=== PATIENT | female | born 1945 | race Caucasian/White ===

== ENCOUNTER 2021-02-13 05:54 | Day surgery (SDC) | payer MEDICARE, BC ==
[~2021-02-13 05:54] MED LIST: Dextrose 5%-0.45% NaCl 1,000 ML IV SCH; Sodium Chloride 0.9% 10 ML Syringe FLUSH PRN
[2021-02-13] MEDS ORDERED: fentaNYL 100 MCG/2 ML SDV IV ONE ×3 (05:55→07:04)
[2021-02-13] MEDS ORDERED: Midazolam 1 MG/ML 2 ML SDV IV ONE ×6 (05:55→07:19)
[2021-02-13] MEDS ORDERED: Midazolam 1 MG/ML 2 ML SDV ONE (06:07)
[2021-02-13] MEDS ORDERED: fentaNYL 100 MCG/2 ML SDV ONE (06:07)
--- NOTE | 2021-02-13 10:45 | OR ---
DATE: 02/13/2021 PROCEDURE: Total colonoscopy. INSTRUMENT USED: PCF-H190DL Olympus video colonoscope. PREMEDICATIONS: Fentanyl 100 mcg intravenous, Versed 3.5 mg intravenous. Nasal O2 cannula. The procedure was done under pulse oximetry, BP recording, and cardiac rehab nurse. INDICATION: Screening colonoscopic examination is done for detection of any polypoid lesions and removal, endoscopic hemostasis therapy if needed. DESCRIPTION OF PROCEDURE: Initial rectal exam was unremarkable. Rigid anoscopy was normal. The colonoscope was passed with ease. Few scattered diverticula were noted in the distal left colon along with deformity. The scope was passed with ease up to the ileocecal area. Photographs were taken of the normal- appearing cecum identified by landmarks of appendiceal orifice and double-bulged ileocecal folds. No bleeding was noted from any of the visualized areas at the commencement of the examination. The bowel preparation was found to be adequate. [place] scale 2 in all the regions, total score 6. No stricture. No vascular ectasia. No large isolated ulcerations seen. No evidence of diffuse inflammatory bowel disease in the form of friability, contact bleeding, or ulcerations. No polyp or tumor mass identified. Probing the proximal sides of folds and flexures using adequate distention and clearing up the stool material, withdrawal of the scope was made, cecum to rectum time over 6 minutes. No bleeding was noted from any of the visualized areas at the completion of examination. IMPRESSION: Diverticulosis. The patient tolerated the procedure well. [facility] /[id number]
== END 2021-02-13 09:35 | disposition home or self-care (01) ==
LOC: DL.ENDO 05:54
PROVIDERS: ATTEND Internal Medicine Gastroenterology
DX: Z12.11 Encounter for screening for malignant neoplasm of colon (principal); K57.30 Diverticulosis of large intestine without perforation or abscess without bleeding; M81.0 Age-related osteoporosis without current pathological fracture; Z88.6 Allergy status to analgesic agent; Z98.890 Other specified postprocedural states
CPT/HCPCS: J2250; J3010; J7042

== ENCOUNTER 2021-08-24 13:40 | Inpatient (IN) | payer MEDICARE, BC ==
[2021-08-24 14:16] LABS: ANION GAP 10.8 mEq/L (7-13); CHLORIDE,CL 84 mmol/L (98-107); SODIUM,NA 120 mmol/L (136-145)
--- NOTE | 2021-08-24 14:31 | EDM.PDOC ---
ED HPI GENERAL MEDICAL PROBLEM - General Chief Complaint: General Stated Complaint: [id number] TAB SANTIAGO SENT FOR IV FLUIDS Time Seen by Provider: 08/24/21 14:00 Source of Information: Reports: Patient History Limitations: Reports: No Limitations - History of Present Illness INITIAL COMMENTS - FREE TEXT/NARRATIVE: This 76 yo female patient was sent to the ED by her provider (Tab Santiago) due to low sodium levels. The patient was started on Chlorthalidone on 08/13/21 due to elevated blood pressures. The patient reports she "just has not felt right" since the medication was started. The patient had noticed that she did not feel like she could completely empty her bladder over the weekend. The patient went to the clinic to have a UA and decided to do her blood work for her follow-up with Tab on Tuesday. When the patient's sodium level came back at 120, the patient was called and advised to come to the ED for further evaluation and treatment. The clinic forwarded the patient's UA demonstrating the patient had blood in her urine as well as it Leuk Est. Onset: Unknown/Unsure Duration: Constant Location: Reports: Head (headache), Abdomen Quality: Reports: Other Severity: Moderate Improves with: Reports: None Worsens with: Reports: None Context: Reports: Other Associated Symptoms: Reports: No Other Symptoms Headache Pain Score (Numeric/FACES): 5 - Related Data Allergies Allergy/AdvReac Type Severity Reaction Status Date / Time codeine Allergy Nausea Verified 08/24/21 13:56 Home Meds: Home Meds Cholecalciferol (Vitamin D3) [Vitamin D] 400 unit PO TID 12/25/13 [History] Levothyroxine [Sythroid] 100 mcg PO DAILY 12/25/13 [History] Lutein/Minerals/Vit A,C & E [I-Eri] 1 each PO BEDTIME 12/25/13 [History] Glucosamine/Chondroitin/C/Juan [Glucosamine Chondroitin Caplet] 1 tab PO BEDTIME 08/21/18 [History] Ibuprofen 200 mg PO ASDIRECTED 08/21/18 [History] Magnesium Carbonate 500 mg PO BEDTIME 08/21/18 [History] Cetirizine [ZyrTEC] 10 mg PO DAILY 08/23/18 [History] Calcium Carbonate [Calcium] 500 mg PO BID 02/12/21 [History] Zinc/Ascorbic Acid/Pyridoxine [Zinc-Vitamin C-B6 Lozenge] 1 tab.chew PO DAILY 02/12/21 [History] Past Medical History HEENT History: Reports: Impaired Vision, Other (See Below) Other HEENT History: WEARS CORRECTIVE LENS Cardiovascular History: Reports: Heart Murmur, Other (See Below) Other Cardiovascular History: VARICOSE VEINS Respiratory History: Reports: None Gastrointestinal History: Reports: None Genitourinary History: Reports: None SKY CAP History: Reports: , Spontaneous Musculoskeletal History: Reports: Arthritis, Fracture, Other (See Below) Other Musculoskeletal History: WRIST FRACTURE BILAT Neurological History: Reports: Headaches, Chronic, Migraines Psychiatric History: Reports: None Other Psychiatric History: SADD Endocrine/Metabolic History: Reports: Hyperparathyroidism, Hypothyroidism, Other (See Below) Other Endocrine/Metabolic History: HX OF GRAVE'S DISEASE - TREATED Hematologic History: Reports: None Immunologic History: Reports: None Oncologic (Cancer) History: Reports: None Dermatologic History: Reports: None - Infectious Disease History Infectious Disease History: Reports: Chicken Pox, Mumps, Novel Coronavirus - Past Surgical History Head Surgeries/Procedures: Reports: None HEENT Surgical History: Reports: Cataract Surgery Cardiovascular Surgical History: Reports: Varicose Respiratory Surgical History: Reports: None GI Surgical History: Reports: Colonoscopy Female Surgical History: Reports: Breast Implant, Tubal Ligation Endocrine Surgical History: Reports: Other (See Below) Other Endocrine Surgeries/Procedures: THYRIOD ABLATION - DENIES ABLATION Neurological Surgical History: Reports: None Musculoskeletal Surgical History: Reports: Other (See Below) Other Musculoskeletal Surgeries/Procedures:: HX of HAND SURGERY, TENDON REPAIR FOLLOWING DOG BITE Oncologic Surgical History: Reports: None Dermatological Surgical History: Reports: None Social & Family History - Family History Family Medical History: No Pertinent Family History Cardiac: Reports: Hypertension Musculoskeletal: Reports: Osteoporosis Neurological: Reports: CVA Psychiatric: Reports: Depression Endocrine/Metabolic: Reports: Diabetes, type II, Hypothyroidism Oncologic: Reports: Breast, Colon, Lung, Thyroid - Tobacco Use Tobacco Use Status *Q: Never Tobacco User Second Hand Smoke Exposure: No - Caffeine Use Caffeine Use: Reports: Coffee Caffeine Use Comment: 7 CUPS daily - Recreational Drug Use Recreational Drug Use: No ED ROS GENERAL - Review of Systems Review Of Systems: Comprehensive ROS is negative, except as noted in HPI. ED EXAM, GENERAL - Physical Exam Exam: See Below Exam Limited By: No Limitations General Appearance: Alert, WD/WN, Moderate Distress (due to headache) Eye Exam: Bilateral Eye: EOMI, Normal Inspection, PERRL Ears: Normal External Exam, Normal Canal, Hearing Grossly Normal, Normal TMs Nose: Normal Inspection, Normal Mucosa, No Blood Throat/Mouth: Normal Inspection, Normal Lips, Normal Teeth, Normal Gums, Normal Oropharynx, Normal Voice, No Airway Compromise Head: Atraumatic, Normocephalic Neck: Normal Inspection, Supple, Non-Tender, Full Range of Motion Respiratory/Chest: No Respiratory Distress, Lungs Clear, Normal Breath Sounds, No Accessory Muscle Use, Chest Non-Tender Cardiovascular: Normal Peripheral Pulses, Regular Rate, Rhythm, No Edema, No Gallop, No JVD, No Murmur, No Rub GI/Abdominal: Normal Bowel Sounds, Soft, Non-Tender, No Organomegaly, No Distention, No Abnormal Bruit, No Mass (Female) Exam: Deferred Rectal (Female) Exam: Deferred Back Exam: Normal Inspection, Full Range of Motion, NT Extremities: Normal Inspection, Normal Range of Motion, Non-Tender, Normal Capillary Refill, No Pedal Edema Neurological: Alert, Oriented, CN II-XII Intact, Normal Cognition, Normal Gait, Normal Reflexes, No Motor/Sensory Deficits Psychiatric: Normal Affect, Normal Mood Skin Exam: Warm, Dry, Intact, Normal Color, No Rash Lymphatic: No Adenopathy Course - Vital Signs Last Recorded V/S: Last Vital Signs Temp 96.4 F L 08/24/21 13:46 Pulse 69 08/24/21 13:46 Resp 16 08/24/21 13:46 BP 149/88 H 08/24/21 13:46 Pulse Ox 100 08/24/21 13:46 - Orders/Labs/Meds Orders: Active Orders 24 hr Category Date Time Status Admission Diagnosis [ADT] Urgent ADT 08/24/21 14:47 Ordered Admission Status [Patient Status] [ADT] Routine ADT 08/24/21 14:47 Ordered CORONAVIRUS COVID-19 MYRNA [MOLEC] Urgent Lab 08/24/21 14:39 Ordered Labs: Laboratory Tests 08/24/21 08/24/21 Range/Units 13:51 13:51 WBC 8.2 (5.0-10.0) 10^3/uL RBC 4.18 L (4.2-5.4) 10^6/uL Hgb 12.7 (12.0-16.0) g/dL Hct 36.6 L (37.0-47.0) % MCV 87.6 (80-100) fL MCH 30.4 (27.0-34.0) pg MCHC 34.7 (33.0-35.0) g/dL Plt Count 273 (150-450) 10^3/uL Neut % (Auto) 76.5 H (42.2-75.2) % Lymph % (Auto) 15.3 L (20.5-50.1) % [place] % (Auto) 6.8 (2-8) % Eos % (Auto) 1.0 (1.0-3.0) % Baso % (Auto) 0.4 (0.0-1.0) % Sodium 120 L (136-145) mmol/L Potassium 3.8 (3.5-5.1) mmol/L Chloride 84 L (98-107) mmol/L Carbon Dioxide 29 (21-32) mmol/L Anion Gap 10.8 (7-13) mEq/L BUN 10 (7-18) mg/dL Creatinine 0.61 (0.55-1.02) mg/dL Est Cr Clr Drug Dosing 66.69 mL/min Estimated GFR (MDRD) > 60 BUN/Creatinine Ratio 16.4 (No establ ref range) Glucose 95 (70-99) mg/dL Calcium 8.8 (8.5-10.1) mg/dL Total Bilirubin 0.7 (0.2-1.0) mg/dL AST 24 (15-37) U/L ALT 27 (14-59) U/L Alkaline Phosphatase 76 (46-116) U/L Total Protein 7.4 (6.4-8.2) g/dL Albumin 3.9 (3.4-5.0) g/dL Globulin 3.5 Albumin/Globulin Ratio 1.1 Departure - Departure Time of Disposition: 14:51 Disposition: Admitted As Inpatient 65 Condition: Fair Clinical Impression: Hyponatremia UTI (urinary tract infection) Qualifiers: Urinary tract infection type: site unspecified Hematuria presence: with hematuria Qualified Code(s): N39.0 - Urinary tract infection, site not specified; R31.9 - Hematuria, unspecified - Discharge Information *PRESCRIPTION DRUG MONITORING PROGRAM REVIEWED*: Not Applicable *COPY OF PRESCRIPTION DRUG MONITORING REPORT IN PATIENT SATYA: Not Applicable Care Plan Goals: Discussed the patient's history, examination and lab results with Dr. Houser. Dr. Houser accepted the patient for continued evaluation and management as an inpatient at [facility]. Sepsis Event Note (ED) - Evaluation Sepsis Screening Result: No Definite Risk - Focused Exam Vital Signs: Vital Signs Temp Pulse Resp BP Pulse Ox 08/24/21 13:46 96.4 F L 69 16 149/88 H 100 - My Orders Last 24 Hours: My Active Orders 08/24/21 14:39 CORONAVIRUS COVID-19 MYRNA [MOLEC] Urgent 08/24/21 14:47 Admission Diagnosis [ADT] Urgent Admission Status [Patient Status] [ADT] Routine - Assessment/Plan Last 24 Hours: My Active Orders 08/24/21 14:39 CORONAVIRUS COVID-19 MYRNA [MOLEC] Urgent 08/24/21 14:47 Admission Diagnosis [ADT] Urgent Admission Status [Patient Status] [ADT] Routine
[2021-08-24] MEDS ORDERED: Temazepam 15 MG Cap PO PRN (17:22)
[2021-08-24] MEDS ORDERED: Ondansetron 4 MG/2 ML SDV IVPUSH PRN (17:22)
[2021-08-24] MEDS ORDERED: cefTRIAXone 1 GM in Sodium Chloride 0.9% 50 ML IV SCH (17:30)
[2021-08-24] MEDS ORDERED: NS + KCl 20mEq/L 1,000 ML IV SCH (17:30)
--- NOTE | 2021-08-24 17:33 | PCM.HP ---
H&P History of Present Illness - General Date of Service: 08/24/21 Admit Problem/Dx: Admission Diagnosis/Problem Admission Diagnosis/Problem Hyponatremia Source of Information: Patient, Provider - History of Present Illness Initial Comments - Free Text/Narative: 76-year-old lady With history of hypothyroidism The patient had Covid infection November 2020 Ever since the patient has been complaining of neck pain, headaches Taking Tylenol and Motrin for this. she has been following up with pain management in [place]. Most recently the patient was noted to have hypertension. On 13 August she was started on chlorthalidone in the past few days she was feeling that she cannot urinate appropriately, over the weekend she was pushing fluids. She was drinking 6-8 large cups of free water. She went to the clinic on the day of admission and was found to have hyponatremia with sodium level of 120 She was asked to go to the emergency room Headache Pain Score (Numeric/FACES): 5 - Related Data Allergies/Adverse Reactions: Allergies Allergy/AdvReac Type Severity Reaction Status Date / Time codeine Allergy Nausea Verified 08/24/21 13:56 Home Medications: Home Meds Cholecalciferol (Vitamin D3) [Vitamin D] 400 unit PO TID 12/25/13 [History] Levothyroxine [Sythroid] 100 mcg PO DAILY 12/25/13 [History] Lutein/Minerals/Vit A,C & E [I-Eri] 1 each PO BEDTIME 12/25/13 [History] Glucosamine/Chondroitin/C/Juan [Glucosamine Chondroitin Caplet] 1 tab PO BEDTIME 08/21/18 [History] Ibuprofen 200 mg PO ASDIRECTED 08/21/18 [History] Magnesium Carbonate 500 mg PO BEDTIME 08/21/18 [History] Cetirizine [ZyrTEC] 10 mg PO DAILY 08/23/18 [History] Calcium Carbonate [Calcium] 500 mg PO BID 02/12/21 [History] Zinc/Ascorbic Acid/Pyridoxine [Zinc-Vitamin C-B6 Lozenge] 1 tab.chew PO DAILY 02/12/21 [History] Chlorthalidone 12.5 mg PO DAILY 08/24/21 [History] Past Medical History HEENT History: Reports: Impaired Vision, Other (See Below) Other HEENT History: WEARS CORRECTIVE LENS Cardiovascular History: Reports: Heart Murmur, Other (See Below) Other Cardiovascular History: VARICOSE VEINS Respiratory History: Reports: None Gastrointestinal History: Reports: None Genitourinary History: Reports: None [employer]IST[employer] History: Reports: , Spontaneous Musculoskeletal History: Reports: Arthritis, Fracture, Other (See Below) Other Musculoskeletal History: WRIST FRACTURE BILAT Neurological History: Reports: Headaches, Chronic, Migraines Psychiatric History: Reports: None Other Psychiatric History: SADD Endocrine/Metabolic History: Reports: Hyperparathyroidism, Hypothyroidism, Other (See Below) Other Endocrine/Metabolic History: HX OF GRAVE'S DISEASE - TREATED Hematologic History: Reports: None Immunologic History: Reports: None Oncologic (Cancer) History: Reports: None Dermatologic History: Reports: None - Infectious Disease History Infectious Disease History: Reports: Chicken Pox, Mumps, Novel Coronavirus - Past Surgical History Head Surgeries/Procedures: Reports: None HEENT Surgical History: Reports: Cataract Surgery Cardiovascular Surgical History: Reports: Varicose Respiratory Surgical History: Reports: None GI Surgical History: Reports: Colonoscopy Female Surgical History: Reports: Breast Implant, Tubal Ligation Endocrine Surgical History: Reports: Other (See Below) Other Endocrine Surgeries/Procedures: THYRIOD ABLATION - DENIES ABLATION Neurological Surgical History: Reports: None Musculoskeletal Surgical History: Reports: Other (See Below) Other Musculoskeletal Surgeries/Procedures:: HX of HAND SURGERY, TENDON REPAIR FOLLOWING DOG BITE Oncologic Surgical History: Reports: None Dermatological Surgical History: Reports: None Social & Family History - Family History Family Medical History: No Pertinent Family History Cardiac: Reports: Hypertension Musculoskeletal: Reports: Osteoporosis Neurological: Reports: CVA Psychiatric: Reports: Depression Endocrine/Metabolic: Reports: Diabetes, type II, Hypothyroidism Oncologic: Reports: Breast, Colon, Lung, Thyroid - Tobacco Use Tobacco Use Status *Q: Never Tobacco User Second Hand Smoke Exposure: No - Caffeine Use Caffeine Use: Reports: Coffee Caffeine Use Comment: 7 CUPS daily - Recreational Drug Use Recreational Drug Use: No H&P Review of Systems - Review of Systems: Review Of Systems: See Below General: Reports: Malaise, Weakness. Denies: Fever Pulmonary: Denies: Shortness of Breath, Wheezing Cardiovascular: Denies: Chest Pain, Edema Gastrointestinal: Reports: Nausea. Denies: Abdominal Pain Musculoskeletal: Reports: Neck Pain, Other Neurological: Reports: Headache, Weakness. Denies: Seizure, Syncope Exam - Exam Exam: See Below - Vital Signs Vital Signs: Last Vital Signs Temp 96.8 F L 08/24/21 17:01 Pulse 64 08/24/21 17:01 Resp 20 08/24/21 17:01 BP 120/81 08/24/21 17:01 Pulse Ox 97 08/24/21 17:01 Weight: 129 lb 3.2 oz - Exam Quality Assessment: No: Supplemental Oxygen General: Alert, Oriented Neck: Supple Lungs: Clear to Auscultation, Normal Respiratory Effort Cardiovascular: Regular Rate, Regular Rhythm GI/Abdominal Exam: Normal Bowel Sounds, Soft, Non-Tender Back Exam: Normal Inspection Extremities: No Pedal Edema Skin: Warm, Dry Neuro Extensive - Mental Status: Alert, Oriented x3, Normal Mood/Affect Psychiatric: Alert, Normal Affect, Normal Mood - Patient Data Lab Results Last 24 hrs: Laboratory Results - last 24 hr 08/24/21 08/24/21 08/24/21 Range/Units 13:51 13:51 14:39 WBC 8.2 (5.0-10.0) 10^3/uL RBC 4.18 L (4.2-5.4) 10^6/uL Hgb 12.7 (12.0-16.0) g/dL Hct 36.6 L (37.0-47.0) % MCV 87.6 (80-100) fL MCH 30.4 (27.0-34.0) pg MCHC 34.7 (33.0-35.0) g/dL Plt Count 273 (150-450) 10^3/uL Neut % (Auto) 76.5 H (42.2-75.2) % Lymph % (Auto) 15.3 L (20.5-50.1) % [place] % (Auto) 6.8 (2-8) % Eos % (Auto) 1.0 (1.0-3.0) % Baso % (Auto) 0.4 (0.0-1.0) % Sodium 120 L (136-145) mmol/L Potassium 3.8 (3.5-5.1) mmol/L Chloride 84 L (98-107) mmol/L Carbon Dioxide 29 (21-32) mmol/L Anion Gap 10.8 (7-13) mEq/L BUN 10 (7-18) mg/dL Creatinine 0.61 (0.55-1.02) mg/dL Est Cr Clr Drug Dosing 66.69 mL/min Estimated GFR (MDRD) > 60 BUN/Creatinine Ratio 16.4 (No establ ref range) Glucose 95 (70-99) mg/dL Calcium 8.8 (8.5-10.1) mg/dL Total Bilirubin 0.7 (0.2-1.0) mg/dL AST 24 (15-37) U/L ALT 27 (14-59) U/L Alkaline Phosphatase 76 (46-116) U/L Total Protein 7.4 (6.4-8.2) g/dL Albumin 3.9 (3.4-5.0) g/dL Globulin 3.5 Albumin/Globulin Ratio 1.1 SARS-CoV-2 RNA (MYRNA) Negative (NEGATIVE) Result Diagrams: 08/24/21 13:51 08/24/21 13:51 - Problem List (1) Hypothyroidism SNOMED Code(s): 44359634 ICD Code: E03.9 - HYPOTHYROIDISM, UNSPECIFIED Status: Acute Current Visit: Yes (2) Hyponatremia SNOMED Code(s): 24112360 ICD Code: E87.1 - HYPO-OSMOLALITY AND HYPONATREMIA Status: Acute Current Visit: No (3) UTI (urinary tract infection) SNOMED Code(s): 27681925 ICD Code: N39.0 - URINARY TRACT INFECTION, SITE NOT SPECIFIED Status: Acute Current Visit: No Qualifiers: Urinary tract infection type: site unspecified Hematuria presence: with hematuria Qualified Code(s): N39.0 - Urinary tract infection, site not specified; R31.9 - Hematuria, unspecified Problem List Initiated/Reviewed/Updated: Yes Orders Last 24hrs: Active Orders 24 hr Category Date Time Status Admission Diagnosis [ADT] Urgent ADT 08/24/21 14:47 Ordered Admission Status [Patient Status] [ADT] Routine ADT 08/24/21 14:47 Active Antiembolic Devices [RC] PER UNIT ROUTINE Care 08/24/21 17:24 Ordered Oxygen Therapy [RC] PRN Care 08/24/21 17:22 Ordered Up With Assistance [RC] ASDIRECTED Care 08/24/21 17:22 Ordered VTE/DVT Education [RC] PER UNIT ROUTINE Care 08/24/21 17:22 Ordered Vital Signs [RC] Q4H Care 08/24/21 17:22 Ordered Regular Diet [DIET] Diet 08/24/21 Breakfast Ordered BASIC METABOLIC PANEL,BMP [CHEM] AM Lab 08/25/21 05:11 Ordered CBC W/O DIFF,HEMOGRAM [HEME] AM Lab 08/25/21 05:11 Ordered Acetaminophen [TylenoL] Med 08/24/21 17:22 Ordered 650 mg PO Q4H PRN Calcium Carbonate [Calcium] Med 08/24/21 21:00 Ordered 500 mg PO BID Cetirizine [ZyrTEC] Med 08/25/21 09:00 Ordered 10 mg PO DAILY Cholecalciferol (Vitamin D3) [Vitamin D3] Med 08/24/21 21:00 Ordered 400 unit PO TID Heparin Sodium Med 08/24/21 22:00 Ordered 5,000 units SUBCUT Q8HR Ibuprofen [Motrin] Med 08/24/21 17:19 Ordered 200 mg PO Q6H PRN Levothyroxine [Synthroid] Med 08/25/21 09:00 Ordered 100 mcg PO DAILY Lutein/Minerals/Vit A,C & E [I-Eri] Med 08/24/21 21:00 Ordered 1 each PO BEDTIME Magnesium Carbonate [Magnesium Carbonate] Med 08/24/21 21:00 Ordered 500 mg PO BEDTIME NS + KCl 20mEq/L [Normal Saline with 20 mEq KCl] 1,000 Med 08/24/21 17:30 Ordered ml IV ASDIRECTED Ondansetron [Zofran] Med 08/24/21 17:22 Ordered 4 mg IVPUSH Q6H PRN Temazepam [Restoril] Med 08/24/21 17:22 Ordered 15 mg PO BEDTIME PRN cefTRIAXone [Rocephin] 1 gm Med 08/24/21 17:30 Ordered Sodium Chloride 0.9% [Normal Saline AdvBag] 50 ml IV Q24H Antiembolic Hose [OM.PC] Per Unit Routine Oth 08/24/21 17:23 Ordered Resuscitation Status Routine Resus Stat 08/24/21 17:22 Ordered Medication Orders Acetaminophen (Acetaminophen 325 Mg Tab) 650 mg PO Q4H PRN PRN Reason: Pain (Mild 1-3)/fever Heparin Sodium (Porcine) (Heparin Sodium 5,000 Units/Ml Vial) 5,000 units SUBCUT Q8HR SUZI Potassium Chloride/Sodium Chloride (Normal Saline With 20 Meq Kcl) 1,000 mls @ 50 mls/hr IV ASDIRECTED [facility] Ceftriaxone Sodium 1 gm/ (Sodium Chloride) 50 mls @ 100 mls/hr IV Q24H SUZI Ibuprofen (Ibuprofen 200 Mg Tab) 200 mg PO Q6H PRN PRN Reason: Headache Levothyroxine Sodium (Levothyroxine 100 Mcg Tab) 100 mcg PO DAILY SUZI Multivitamins/Minerals (Lutein/Minerals/Vit A,C & E Tab) 1 each PO BEDTIME SUZI Non-Formulary Medication (Calcium Carbonate [Calcium]) 500 mg PO BID SUZI Non-Formulary Medication (Cetirizine [Zyrtec]) 10 mg PO DAILY SUZI Non-Formulary Medication (Cholecalciferol (Vitamin D3) [Vitamin D3]) 400 unit PO TID SUZI Non-Formulary Medication (Magnesium Carbonate [Magnesium Carbonate]) 500 mg PO BEDTIME SUZI Ondansetron HCl (Ondansetron 4 Mg/2 Ml Sdv) 4 mg IVPUSH Q6H PRN PRN Reason: Nausea/Vomiting Temazepam (Temazepam 15 Mg Cap) 15 mg PO BEDTIME PRN PRN Reason: Sleep Assessment/Plan Comment:: 76-year-old lady who was referred to the emergency room with hyponatremia Her symptoms of headache, neck pain, generalized malaise appear chronic and can be traced back to Covid infection November 2020 I do not think that these are necessarily acute and related to the hyponatremia Hyponatremia Likely combination of chlorthalidone and increased free water intake List of chlorthalidone Discussed fluid restrictions Give low-dose IV normal saline Stop chlorthalidone Recheck sodium in the morning Possible urinary tract infection As reported from the clinic Will obtain urine culture Treat empirically with ceftriaxone Recent diagnosis of hypertension Will stop chlorthalidone Monitor blood pressure Start other medications as needed Hypothyroidism Continue Synthroid Chronic headache, neck pain Use Tylenol, Motrin as needed The patient will follow-up with interventional pain management DVT prophylaxis with subcutaneous heparin
[2021-08-24] MEDS: Ibuprofen 200 MG Tab PO PRN (18:03)
[2021-08-24] MEDS: Calcium Carbonate 500 MG Tab.Chew PO SCH (20:50)
[2021-08-24] MEDS: Cholecalciferol (Vitamin D3) 10 MCG Tab PO SCH (20:50)
[2021-08-24] MEDS ORDERED: Lutein/Minerals/Vit A,C & E Tab PO SCH (21:00)
[2021-08-24] MEDS: Acetaminophen 325 MG Tab PO PRN (21:12)
[2021-08-24] MEDS: Heparin Sodium 5,000 Units/ML Vial SUBCUT SCH (21:17)
[2021-08-25] MEDS: Ibuprofen 200 MG Tab PO PRN (04:30)
[2021-08-25] MEDS ORDERED: Levothyroxine 100 MCG Tab PO SCH (06:00)
[2021-08-25] MEDS: Heparin Sodium 5,000 Units/ML Vial SUBCUT SCH ×2 (06:26→15:27)
[2021-08-25] MEDS: Acetaminophen 325 MG Tab PO PRN (06:32)
[2021-08-25 07:16] LABS: ANION GAP 9.7 mEq/L (7-13); CHLORIDE,CL 92 mmol/L (98-107); SODIUM,NA 127 mmol/L (136-145)
[2021-08-25] MEDS: Cholecalciferol (Vitamin D3) 10 MCG Tab PO SCH ×2 (08:50→15:27)
[2021-08-25] MEDS: Calcium Carbonate 500 MG Tab.Chew PO SCH (08:50)
--- NOTE | 2021-08-25 11:53 | PCM.DCSUM1 ---
Discharge Summary - Hospital Course Free Text/Narrative:: 76-year-old lady who was referred to the emergency room with hyponatremia Her symptoms of headache, neck pain, generalized malaise appear chronic and can be traced back to Covid infection November 2020 I do not think that these are necessarily acute nor related to the hyponatremia Hyponatremia Likely combination of chlorthalidone and increased free water intake improved with low-dose IV normal saline Stop chlorthalidone Recheck sodium periodically discussed fluid restrictions Possible urinary tract infection As reported from the clinic urine culture: pending Treat empirically with ceftriaxone dischsrge with keflex Recent diagnosis of hypertension Will stop chlorthalidone f/up with PMD Hypothyroidism Continue Synthroid Chronic headache, neck pain Use Tylenol, Motrin as needed The patient will follow-up with interventional pain management Diagnosis: Stroke: No - Discharge Data Discharge Date: 08/25/21 Discharge Disposition: Home, Self-Care 01 Condition: Good - Referral to Home Health Primary Care Physician: PCP None - Discharge Diagnosis/Problem(s) (1) Hypothyroidism SNOMED Code(s): 44992507 ICD Code: E03.9 - HYPOTHYROIDISM, UNSPECIFIED Status: Acute Current Visit: Yes (2) Hyponatremia SNOMED Code(s): 58800674 ICD Code: E87.1 - HYPO-OSMOLALITY AND HYPONATREMIA Status: Acute Current Visit: No (3) UTI (urinary tract infection) SNOMED Code(s): 64245894 ICD Code: N39.0 - URINARY TRACT INFECTION, SITE NOT SPECIFIED Status: Acute Current Visit: No Qualifiers: Urinary tract infection type: site unspecified Hematuria presence: with hematuria Qualified Code(s): N39.0 - Urinary tract infection, site not specified; R31.9 - Hematuria, unspecified - Patient Instructions Diet: Regular Diet as Tolerated Activity: As Tolerated - Discharge Plan *PRESCRIPTION DRUG MONITORING PROGRAM REVIEWED*: Not Applicable *COPY OF PRESCRIPTION DRUG MONITORING REPORT IN PATIENT SATYA: Not Applicable Prescriptions/Med Rec: cephALEXin [Keflex] 500 mg PO TID #15 cap Home Medications: Home Meds Cholecalciferol (Vitamin D3) [Vitamin D3] 400 unit PO TID 12/25/13 [History] Levothyroxine [Synthroid] 100 mcg PO DAILY 12/25/13 [History] Lutein/Minerals/Vit A,C & E [I-Eri] 1 each PO BEDTIME 12/25/13 [History] Glucosamine/Chondroitin/C/Juan [Glucosamine Chondroitin Caplet] 1 tab PO BEDTIME 08/21/18 [History] Ibuprofen 200 mg PO ASDIRECTED 08/21/18 [History] Magnesium Carbonate 500 mg PO BEDTIME 08/21/18 [History] Cetirizine [ZyrTEC] 10 mg PO DAILY 08/23/18 [History] Calcium Carbonate [Calcium] 500 mg PO BID 02/12/21 [History] Zinc/Ascorbic Acid/Pyridoxine [Zinc-Vitamin C-B6 Lozenge] 1 tab.chew PO DAILY 02/12/21 [History] cephALEXin [Keflex] 500 mg PO TID #15 cap 08/25/21 [Rx] Oxygen Therapy Mode: Room Air Referrals: Camelia Santiago NP [Ordering Only Provider] - - Discharge Summary/Plan Comment DC Time >30 min.: No Total # of Minutes for Discharge Time: 20 min - General Info Date of Service: 08/25/21 Functional Status: Reports: Pain Controlled, Tolerating Diet - Review of Systems General: Denies: Fever, Weakness Pulmonary: Denies: Shortness of Breath Cardiovascular: Denies: Chest Pain, Edema Neurological: Denies: Confusion - Patient Data Vitals - Most Recent: Last Vital Signs Temp 97.7 F 08/25/21 07:25 Pulse 57 L 08/25/21 07:25 Resp 18 08/25/21 07:25 BP 117/70 08/25/21 07:25 Pulse Ox 97 08/25/21 07:25 Weight - Most Recent: 129 lb 3.2 oz I&O - Last 24 hours: Intake & Output 08/24/21 08/25/21 08/25/21 22:59 06:59 14:59 Intake Total 620 525 Output Total 750 500 Balance -130 25 Lab Results - Last 24 hrs: Laboratory Results - last 24 hr 08/24/21 08/24/21 08/24/21 Range/Units 13:51 13:51 14:39 WBC 8.2 (5.0-10.0) 10^3/uL RBC 4.18 L (4.2-5.4) 10^6/uL Hgb 12.7 (12.0-16.0) g/dL Hct 36.6 L (37.0-47.0) % MCV 87.6 (80-100) fL MCH 30.4 (27.0-34.0) pg MCHC 34.7 (33.0-35.0) g/dL Plt Count 273 (150-450) 10^3/uL Neut % (Auto) 76.5 H (42.2-75.2) % Lymph % (Auto) 15.3 L (20.5-50.1) % [place] % (Auto) 6.8 (2-8) % Eos % (Auto) 1.0 (1.0-3.0) % Baso % (Auto) 0.4 (0.0-1.0) % Sodium 120 L (136-145) mmol/L Potassium 3.8 (3.5-5.1) mmol/L Chloride 84 L (98-107) mmol/L Carbon Dioxide 29 (21-32) mmol/L Anion Gap 10.8 (7-13) mEq/L BUN 10 (7-18) mg/dL Creatinine 0.61 (0.55-1.02) mg/dL Est Cr Clr Drug Dosing 66.69 mL/min Estimated GFR (MDRD) > 60 BUN/Creatinine Ratio 16.4 (No establ ref range) Glucose 95 (70-99) mg/dL Calcium 8.8 (8.5-10.1) mg/dL Total Bilirubin 0.7 (0.2-1.0) mg/dL AST 24 (15-37) U/L ALT 27 (14-59) U/L Alkaline Phosphatase 76 (46-116) U/L Total Protein 7.4 (6.4-8.2) g/dL Albumin 3.9 (3.4-5.0) g/dL Globulin 3.5 Albumin/Globulin Ratio 1.1 SARS-CoV-2 RNA (MYRNA) Negative (NEGATIVE) 08/25/21 08/25/21 Range/Units 05:50 05:50 WBC 3.5 L (5.0-10.0) 10^3/uL RBC 3.71 L (4.2-5.4) 10^6/uL Hgb 11.3 L (12.0-16.0) g/dL Hct 32.8 L (37.0-47.0) % MCV 88.4 (80-100) fL MCH 30.5 (27.0-34.0) pg MCHC 34.5 (33.0-35.0) g/dL Plt Count 264 (150-450) 10^3/uL Neut % (Auto) (42.2-75.2) % Lymph % (Auto) (20.5-50.1) % [place] % (Auto) (2-8) % Eos % (Auto) (1.0-3.0) % Baso % (Auto) (0.0-1.0) % Sodium 127 L (136-145) mmol/L Potassium 3.7 (3.5-5.1) mmol/L Chloride 92 L (98-107) mmol/L Carbon Dioxide 29 (21-32) mmol/L Anion Gap 9.7 (7-13) mEq/L BUN 10 (7-18) mg/dL Creatinine 0.63 (0.55-1.02) mg/dL Est Cr Clr Drug Dosing 64.58 mL/min Estimated GFR (MDRD) > 60 BUN/Creatinine Ratio (No establ ref range) Glucose 88 (70-99) mg/dL Calcium 8.1 L (8.5-10.1) mg/dL Total Bilirubin (0.2-1.0) mg/dL AST (15-37) U/L ALT (14-59) U/L Alkaline Phosphatase (46-116) U/L Total Protein (6.4-8.2) g/dL Albumin (3.4-5.0) g/dL Globulin Albumin/Globulin Ratio SARS-CoV-2 RNA (MYRNA) (NEGATIVE) Med Orders - Current: Current Medications Acetaminophen (Acetaminophen 325 Mg Tab) 650 mg PO Q4H PRN PRN Reason: Pain (Mild 1-3)/fever Last Admin: 08/25/21 06:32 Dose: 650 mg Documented by: Calcium Carbonate/Glycine (Calcium Carbonate 500 Mg Tab.Chew) 500 mg PO BID [facility] Last Admin: 08/25/21 08:50 Dose: 500 mg Documented by: Cholecalciferol (Cholecalciferol (Vitamin D3) 10 Mcg Tab) 10 mcg PO TID [facility] Last Admin: 08/25/21 08:50 Dose: 10 mcg Documented by: Heparin Sodium (Porcine) (Heparin Sodium 5,000 Units/Ml Vial) 5,000 units SUBCUT Q8HR [facility] Last Admin: 08/25/21 06:26 Dose: 5,000 units Documented by: Potassium Chloride/Sodium Chloride (Normal Saline With 20 Meq Kcl) 1,000 mls @ 50 mls/hr IV ASDIRECTED [facility] Last Admin: 08/24/21 19:46 Dose: 50 mls/hr Documented by: Ceftriaxone Sodium 1 gm/ (Sodium Chloride) 50 mls @ 100 mls/hr IV Q24H [facility] Last Infusion: 08/24/21 20:30 Dose: Infused Documented by: Ibuprofen (Ibuprofen 200 Mg Tab) 200 mg PO Q6H PRN PRN Reason: Headache Last Admin: 08/25/21 04:30 Dose: 200 mg Documented by: Levothyroxine Sodium (Levothyroxine 100 Mcg Tab) 100 mcg PO ACBREAKFAST [facility] Last Admin: 08/25/21 06:26 Dose: 100 mcg Documented by: Loratadine (Loratadine 10 Mg Tab) 10 mg PO DAILY [facility] Magnesium Oxide (Magnesium Oxide 250 Mg Tab) 500 mg PO BEDTIME [facility] Last Admin: 08/24/21 20:51 Dose: 500 mg Documented by: Multivitamins/Minerals (Lutein/Minerals/Vit A,C & E Tab) 1 each PO BEDTIME [facility] Last Admin: 08/24/21 20:49 Dose: Not Given Documented by: Ondansetron HCl (Ondansetron 4 Mg/2 Ml Sdv) 4 mg IVPUSH Q6H PRN PRN Reason: Nausea/Vomiting Temazepam (Temazepam 15 Mg Cap) 15 mg PO BEDTIME PRN PRN Reason: Sleep - Exam General: Reports: Alert, Oriented Neck: Reports: Supple Lungs: Reports: Clear to Auscultation, Normal Respiratory Effort Cardiovascular: Reports: Regular Rate, Regular Rhythm Skin: Reports: Warm, Dry Neurological: Reports: No New Focal Deficit Psy/Mental Status: Reports: Alert, Normal Affect, Normal Mood
[2021-08-25 14:29] LABS: ANION GAP 10.1 mEq/L (7-13); CHLORIDE,CL 93 mmol/L (98-107); SODIUM,NA 128 mmol/L (136-145)
[2021-08-26] MEDS ORDERED: Loratadine 10 MG Tab PO SCH (09:00)
== END 2021-08-25 17:00 | disposition home or self-care (01) | DRG 641 ==
LOC: DL.ED 13:40 → DL.MS 14:47
PROVIDERS: ADMIT Internal Medicine; ATTEND Internal Medicine
DX: E87.1 Hypo-osmolality and hyponatremia (principal); N39.0 Urinary tract infection, site not specified; R31.9 Hematuria, unspecified; T50.2X5A Adverse effect of carbonic-anhydrase inhibitors, benzothiadiazides and other diuretics, initial encounter; I83.90 Asymptomatic varicose veins of unspecified lower extremity; I10 Essential (primary) hypertension; E03.9 Hypothyroidism, unspecified; Z79.890 Hormone replacement therapy; G89.29 Other chronic pain; Z79.899 Other long term (current) drug therapy; Z88.5 Allergy status to narcotic agent; H54.7 Unspecified visual loss; Z97.3 Presence of spectacles and contact lenses; M19.90 Unspecified osteoarthritis, unspecified site; G43.909 Migraine, unspecified, not intractable, without status migrainosus; E21.3 Hyperparathyroidism, unspecified; E05.00 Thyrotoxicosis with diffuse goiter without thyrotoxic crisis or storm; Z98.49 Cataract extraction status, unspecified eye; Z86.16 Personal history of COVID-19; Z98.51 Tubal ligation status; Z20.822 Contact with and (suspected) exposure to COVID-19
CPT/HCPCS: 36415; 80053; 85025; U0002; 80048; 85027; 99284; A9270-GY; J0696; J1644; J3480

== ENCOUNTER 2023-08-13 13:30 | Emergency (ER) | payer MEDICARE, BC | END 2023-08-13 14:54 | disposition home or self-care (01) | LOC: DL.ED 13:30 | DX: S20.211A Contusion of right front wall of thorax, initial encounter (principal); S10.93XA Contusion of unspecified part of neck, initial encounter; I10 Essential (primary) hypertension; E03.9 Hypothyroidism, unspecified; Z86.16 Personal history of COVID-19; Z88.5 Allergy status to narcotic agent; Z79.899 Other long term (current) drug therapy; W00.1XXA Fall from stairs and steps due to ice and snow, initial encounter | CPT/HCPCS: 71101-RT; 73000-RT; 99283 ==